=== PATIENT | male | born 1990 | race Caucasian/White ===

== ENCOUNTER 2022-07-08 21:00 | Outpatient (CLI) | payer OTHER, SELFPAY ==
--- NOTE | 2022-07-17 15:00 | W.PM.SLEEP ---
Sleep Study Details Details Interpreting Provider: Rickey Randall MD Date of Sleep Study: 07/08/22 Sleep Study Details: STUDY TYPE:? [Hospital polysomnogram ? BMI:? 27.9 ORDERING PROVIDER:? shelia INDICATION:? Concerns about sleep apnea ? SLEEP SUMMARY:? Sleep time 4:20 a.m. 3.5, latency 11.5, REM latency 285.5, efficiency 92.7, arousal index 11.5. RESPIRATORY SUMMARY:? Mean oxygen awake 94 asleep 93 minimum 88 AHI 5.0 RDI 7.5. Supine AHI 7.7, supine REM AHI 9.6, Nonsupine AHI 3 nonsupine RDI 5.2 PERIODIC LIMB MOVEMENTS OF SLEEP:? Index 14, index with arousal 1 CARDIAC:? Awake 82, asleep 71, no arrhythmia noted IMPRESSION:? Mild obstructive sleep apnea with some supine and REM dependency. RECOMMENDATION: AutoSet CPAP 4-17, dental appliance and/or airway expansion surgery would all be reasonable treatment options to consider.
== END 2022-07-08 21:01 | disposition home or self-care (01) ==
LOC: SLEEP 12-09 10:26
PROVIDERS: PCP Family Medicine; Visit Provider Family Medicine
DX: G47.33 Obstructive sleep apnea (adult) (pediatric) (principal)
CPT/HCPCS: 95810

== ENCOUNTER 2023-12-04 17:24 | Emergency (ER) | payer OTHER, MEDICAID, SELFPAY ==
[2023-12-04 17:30] VITALS: BP 134/85; PULSE 85; RESP 16; TEMP 37.5; O2SAT 100; BMI 27.5
--- NOTE | 2023-12-04 17:34 | ED.BACK ---
HPI - Back Pain/Injury General Time Seen by Provider: 17:34 Date Seen: 12/04/23 Chief Complaint: Back Injury/Pain Stated Complaint: back pain Time Seen by Provider: 12/04/23 17:33 Source: patient, family, RN notes reviewed and old records reviewed Mode of arrival: ambulatory Limitations: no limitations History of Present Illness HPI Narrative: 33-year-old male who comes in today with back pain. This is been going on about 3 days, waxes and wanes but more severe today. Nausea without vomiting. Denies urinary symptoms. The no known injury. Pain is worse with movement. Taking Tylenol and ibuprofen. No fever chills. Related Data Home Medications Medication Instructions Recorded Confirmed dextroamphetamine-amphetamine 10 10 mg PO QDAY 11/18/23 11/18/23 mg tablet (Adderall) dextroamphetamine-amphetamine ER 15 mg PO QAM 11/18/23 11/18/23 15 mg 24hr capsule,extend release (Adderall XR) hydroxyzine PO 11/18/23 lamotrigine 25 mg tablet mg PO 12/04/23 Previous Rx's Medication Instructions Recorded albuterol sulfate 90 mcg/actuation 2 inh inhalation Q4-6H PRN 11/18/23 aerosol inhaler shortness of breath or wheezing #6.7 grams Allergies Allergy/AdvReac Type Severity Reaction Status Date / Time amoxicillin Allergy Unknown Unknown Verified 11/18/23 14:21 [facility] Medical History (Updated 12/04/23 @ 18:37 by Kings Villalba MD) History of vitamin D deficiency ?Z86.39 - Personal history of other endocrine, nutritional and metabolic disease (ICD-10) Surgical History (Updated 06/06/22 @ 09:37 by Lucita Quevedo MD) S/P vasectomy ?Z98.52 - Vasectomy status (ICD-10) No history of previous surgery Family History (Updated 05/09/22 @ 15:27 by Miryam Cantor) Paternal Grandfather Colon cancer Sister Depression Anxiety Social History (Updated 05/09/22 @ 15:28 by Miryam Cantor) Narrative: Exercise involving walking- 30-60 min walks 5-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 , 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, 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 Non-smoker Social drinker- 10 week, beer and whiskey Smoking Status: Unknown if ever smoked Exam Narrative: Exam Narrative: General: Well-developed and well-nourished, no acute distress Head: Atraumatic and normocephalic Eyes: Pupils are equal reactive, extraocular motions intact, conjunctiva clear ENT: External nose and ears are normal, posterior pharynx without erythema or exudate Neck: No midline cervical tenderness, full spontaneous range of motion the neck, trachea midline, no adenopathy Heart: Regular rate and rhythm no murmurs or thrills Lungs: Clear to auscultation bilaterally without wheezes or crackles Abdomen: Soft, nontender, nondistended with active bowel sounds Musculoskeletal: Loss of lumbar lordosis with back held straight when going from lying to sitting and sitting back delaying, appears uncomfortable with movement. No CVA tenderness. Strength and sensation of the lower extremities intact Neurologic: Awake, alert, and oriented x3, no gross focal neurologic deficits, cranial nerves intact as tested Psych: Mood and affect are appropriate Skin: No rashes Const: Vital Signs, click to edit/add: Vital Signs - 24 hr 12/04/23 17:30 Temperature 99.5 F Pulse Rate [Pulse Oximeter] 85 Respiratory Rate 16 Blood Pressure [Ri ght Upper Arm] 134/85 Pulse Oximetry 100 Oxygen Delivery Me thod Room Air Course Course ED Course: Patient seen and examined, prior records reviewed. Patient presents with low back pain for 3 or 4 days, no known injury. Patient appears uncomfortable with movement. No midline tenderness to percussion or palpation, no lower extremity weakness or numbness, no bowel or bladder dysfunction, no evidence for spinal epidural abscess, cauda equina syndrome. No urinary symptoms but with accompanying nausea, possible kidney stone although pain is worse with movement which would be less typical with ureteral stone. Urinalysis and labs are ordered along with Toradol and Ativan. If urinalysis is normal, patient can be discharged. Reevaluation(s) Time of Reevaluation #1: 18:34 Reevaluation #1: A urinalysis independently interpreted by me without evidence for your urinary tract infection or hematuria. Patient is stable for discharge with prednisone, muscle relaxant, short course of pain medication. Should continue Tylenol and ibuprofen as well. Vital Signs Vital signs: Initial Vital Signs Temperature 99.5 F 12/04/23 17:30 Temperature Source Temporal Artery Scan 12/04/23 17:30 Pulse Rate 85 12/04/23 17:30 Respiratory Rate 16 12/04/23 17:30 Blood Pressure 134/85 12/04/23 17:30 Blood Pressure Mean 101 12/04/23 17:30 Pulse Oximetry 100 12/04/23 17:30 Oxygen Delivery Method Room Air 12/04/23 17:30 Vital Signs Temperature 99.5 F 12/04/23 17:30 Pulse Rate 85 12/04/23 17:30 Respiratory Rate 16 12/04/23 17:30 Blood Pressure 134/85 12/04/23 17:30 Pulse Oximetry 100 12/04/23 17:30 Oxygen Delivery Method Room Air 12/04/23 17:30 Temperature 99.5 F 12/04/23 17:30 Pulse Rate 85 12/04/23 17:30 Respiratory Rate 16 12/04/23 17:30 Blood Pressure 134/85 12/04/23 17:30 Pulse Oximetry 100 12/04/23 17:30 Oxygen Delivery Method Room Air 12/04/23 17:30 Medications Administered Medications: Discontinued Medications Generic Name Dose Route Start Last Admin Trade Name Carol PRN Reason Stop Dose Admin Ketorolac Tromethamine 15 mg 12/04/23 17:51 12/04/23 18:22 Ketorolac 15 Mg/Ml Inj IVP 12/04/23 17:52 15 mg ONCE ONE Administration Lorazepam 0.5 mg 12/04/23 17:52 12/04/23 18:23 Lorazepam 2 Mg/Ml Inj IVP 12/04/23 17:53 0.5 mg ONCE ONE Administration Ondansetron HCl 4 mg 12/04/23 17:51 12/04/23 18:22 Ondansetron 2 Mg/Ml Inj IVP 12/04/23 17:52 4 mg ONCE ONE Administration MDM - Back Pain/Injury Lab Data Labs: Lab Results 12/04/23 12/04/23 Range/Units 17:55 17:59 Sodium 139 (135-149) mmol/L Potassium 3.8 (3.6-5.1) mmol/L Chloride 104 (96-114) mmol/L Carbon Dioxide 27 (20-32) mmol/L Anion Gap 8 (7-15) mEq/L BUN 19 (5-24) mg/dL Creatinine 0.9 (0.5-1.5) mg/dL Estimated Creat Clear 139.53 Estimated GFR 116 ml/min Glucose 123 H (60-115) mg/dL Calcium 9.2 (8.4-10.6) mg/dL Urine Color Yellow (Yellow) Urine Appearance Cloudy A (Clear) Urine pH 8.5 (5.0-8.5) Ur Specific [place] 1.015 (1.000-1.030) Urine Protein Negative (Negative) Urine Glucose (UA) Negative (Negative) Urine Ketones 2+ A (Negative) Urine Blood Negative (Negative) Urine Nitrite Negative (Negative) Urine Bilirubin Negative (Negative) Urine Urobilinogen 0.2 (0.2-1.0) Ur Leukocyte Esterase Negative (Negative) Urine RBC 0-2 (0-2) Urine WBC 0-2 (0-5) Ur Squamous Epith Cells None (None-Few) Amorphous Sediment Moderate A (None) Urine Bacteria None (None) Discharge Plan Discharge Clinical Impression: Acute low back pain Patient Disposition: Home, Self-Care Condition: Stable Instructions: Acute Low Back Pain (ED) Additional Instructions: Take Tylenol and ibuprofen as needed for pain, use [place] for pain not controlled with his medication Take Flexeril as needed for muscle spasm Take prednisone as prescribed Activity Level: Activity as Tolerated Discharge Diet: Regular Prescriptions: No Action dextroamphetamine-amphetamine [Adderall XR] 15 mg capsule,extended release 24hr 15 mg PO QAM dextroamphetamine-amphetamine [Adderall] 10 mg tablet 10 mg PO QDAY hydroxyzine PO albuterol sulfate 90 mcg/actuation HFA aerosol inhaler 2 inh inhalation Q4-6H PRN (Reason: shortness of breath or wheezing) Qty: 6.7 1RF lamotrigine 25 mg tablet PO Follow Up/Referrals: Glendy Galaviz MD [Primary Care Provider] - Stand Alone Forms: [facility] Info Instructions
[2023-12-04 18:13] LABS: Appearance Urine Cloudy (Clear); Bilirubin Urine Negative (Negative); Blood Urine Negative (Negative); Color Urine Yellow (Yellow); Glucose Urine Negative (Negative); Ketones Urine 2+ (Negative); Leukocyte Esterase Urine Negative (Negative); Nitrite Urine Negative (Negative); Protein Urine Negative (Negative); Specific Gravity Urine 1.015 (1.000-1.030); Urobilinogen Urine 0.2 (0.2-1.0); pH Urine 8.5 (5.0-8.5)
[2023-12-04] MEDS: KETOROLAC 15 MG/ML inj IVP (18:22)
[2023-12-04] MEDS: ONDANSETRON 2 MG/ML inj 4 MG IVP (18:22)
[2023-12-04] MEDS: LORazepam 2 MG/ML inj 0.5 MG IVP (18:23)
[2023-12-04 18:28] LABS: Chloride* 104 mmol/L (96-114); Potassium* 3.8 mmol/L (3.6-5.1); Sodium* 139 mmol/L (135-149)
[2023-12-04 18:29] LABS: Amorphous Sediment Urine Moderate; RBC Urine 0-2 (0-2); WBC Urine 0-2 (0-5)
[2023-12-04 18:31] LABS: Anion Gap 8 mEq/L (7-15); Blood Urea Nitrogen* 19 mg/dL (5-24); Carbon Dioxide* 27 mmol/L (20-32); Creatinine* 0.9 mg/dL (0.5-1.5); Est. Creatinine Clearance* 139.53; Estimated Glomerular Filt Rate 116 ml/min; Glucose* 123 mg/dL (60-115)
[2023-12-04 18:32] LABS: Calcium* 9.2 mg/dL (8.4-10.6)
--- OUTSIDE RECORDS SUMMARY | 2023-12-04 18:40 | XMS_ITS | Clinical Summary ---
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 As needed for acute anxiety 30 Tablet 0 03/19/2022 Active dextroamphetamine-amph etamine (ADDERALL XR) 10 mg Extended-Release capsuleIndications:ADH D (attention deficit hyperactivity disorder), inattentive type TAKE 1 CAPSULE (10MG) BY MOUTH ONCE DAILY 30 Capsule 0 10/13/2022 Active dextroamphetamine-amph etamine (ADDERALL) 10 mg tabletIndications:ADHD (attention deficit hyperactivity disorder), inattentive type TAKE 1/2 TO ONE TABLET(5-10MG) BY MOUTH ONCE DAILY 30 Tablet 0 10/13/2022 Active DULoxetine (CYMBALTA) 60 mg Delayed-release capsuleIndications:Gen eralized anxiety disorder,MDD (major depressive disorder), recurrent episode, mild (HC) Take 1 Capsule (60 mg) by mouth once daily. (week 4) 90 Capsule 0 10/17/2022 Active busPIRone (BUSPAR) 30 mg tabletIndications:Gene ralized anxiety disorder Take 1 Tablet (30 mg) by mouth two times daily. 180 Tablet 0 10/17/2022 Active dextroamphetamine-amph etamine (AdderalL) 10 mg tabletIndications:ADHD (attention deficit hyperactivity disorder), inattentive type TAKE 1/2 TO ONE TABLET(5-10MG) BY MOUTH ONCE DAILY 30 Tablet 0 12/18/2022 Active dextroamphetamine-amph etamine (Adderall XR) 15 mg Extended-Release capsuleIndications:ADH D (attention deficit hyperactivity disorder), inattentive type Take 1 Capsule (15 mg) by mouth once daily. 30 Capsule 0 12/16/2022 Active Active Problems Problem Noted Date Diagnosed Date Controlled substance agreement signed 07/02/2022 Overview: 07/02/22, Marylu Dickens, DNP, PRINCIPAL SOFTWARE ARCHITECT, JOINTER MACHINE OPERATOR, Psychiatry Major depressive disorder, recurrent, moderate 0 07/23/2018 Anxiety 07/23/2018 Immunizations Name Administration Dates Next Due Influenza Virus, Unspecified 08/26/2017 Influenza, IIV4 09/12/2019,09/07/2018 Influenza, IIV4 (=>6mos) MDV 09/04/2020 Tdap 01/10/2021,09/23/2017 Family History Medical History Relation Name Comments Cancer-colon Paternal Grandmother Anxiety disorder Sister Relation Name Status Comments Paternal Grandmother Sister Social History Tobacco Use Types Packs/Day Years Used Date Smoking Tobacco: Never Smokeless Tobacco: Never Tobacco Cessation:Counseling Given: Yes Alcohol Use Standard Drinks/Week Comments Yes 5 (1 standard drink = 0.6 oz pur e alcohol) PHQ-2 Answer Date Recorded PHQ-2 TOTAL SCORE 3 10/17/2022 Social Connections Answer Date Recorded Frequency of Communication with Friends and Fami ly Not on file 11/13/2021 Alcohol Use Answer Date Recorded How often do you have a drink containing alcohol ? 3 10/17/2022 How many drinks containing a lcohol do you have on a typical day when you are drinking? 0 10/17/2022 How often do you have five or more drinks on one occasion? 0 10/17/2022 Financial Resource Strain Answer Date R ecorded Difficulty of Paying Living Expenses Not on file 11/13/2021 Difficulty of Paying Living Expenses Not on file 11/13/2021 Sex and Gender Information Value Date Recorded Sex Assigned at Not on file Gender Identity Male 09/03/2021 8:25 AM CDT Sexual Orientation Straight 09/03/2021 8: 25 AM CDT Obstetrics History Last Filed Vital Signs Vital Sign Reading Time Taken Comments Blood Pressure 111/76 07/02/2022 8:32 AM CDT Pulse 106 07/02/2022 8:32 AM CDT Temperature 36.8 ??C (98.2 ??F) 01/18/2019 1:08 PM CS T Respiratory Rate - - Oxygen Saturation 100% 01/18/2019 1:08 PM 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 Inhaled Oxygen Concentration - - Weight 102.3 kg (225 lb 9.6 oz) 07/02/2022 8:32 AM CDT Height 191.8 cm (6' 3.51) 01/18/2019 1:08 PM CS T Body Mass Index 27.82 01/18/2019 1:08 PM 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 Plan of Treatment Health Maintenance Due Date Last Done Comments HIV for age 15-65 2005 Hepatitis C screening for age 18-79 2008 BMI (ht and wt on same day) for age 18+ 01/18/2020 01/18/2019, 09/07/2018, 07/23/2018 COVID-19 vaccine series ( season) 2023 09/08/2022, 09/16/2021, 03/04/2021 Influenza for age 9-49 07/24/2023 , 09/12/2019, 09/07/2018, Additional history exists Depression screening for age 12+ 10/17/2023 10/17/2022, 07/02/2022, 05/15/2022, Additional history exists Tetanus booster 01/10/2031 01/10/2021, 09/23/2017 Tdap Completed 01/10/2021, 09/23/2017 Pneumococcal series for age 6-64 Aged Out No longer eligible based on patient's age to complete this topic Care Teams Coal 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
[2023-12-04 19:09] LABS: Bacteria Urine Few
== END 2023-12-04 18:46 | disposition home or self-care (01) ==
LOC: ED 18:38
PROVIDERS: Emergency Provider Family Medicine; PCP Family Medicine
DX: M54.50 Low back pain, unspecified (principal)
CPT/HCPCS: 36415; 80048; 81001; 87086; 96374; 96375; 99284; J1885; J2060; J2405